=== PATIENT | female | born 1990 | race Caucasian/White ===

== ENCOUNTER 2023-12-28 12:41 | Emergency (ER) | payer OTHER, SELFPAY ==
[2023-12-28 12:48] VITALS: BP 110/78
[2023-12-28 13:11] LABS: % Basophils 0.5 % (0-2); % Eosinophils 0.2 % (0-6); % Immature Granulocytes 0.4 % (0-0.5); % Lymphocytes 13.8 % (20.5-51.1); % Monocytes 3.5 % (1.7-9.3); % Neutrophils 81.6 % (42.2-75.2); Absolute Basophils 0.1 10^3/uL (0-0.2); Absolute Immature Granulocytes 0.1 10^3/uL (0-0.05); Absolute Lymphocytes 1.7 10^3/uL (1.2-3.4); Absolute Monocytes 0.4 10^3/uL (0.1-0.6); Absolute Neutrophils 9.8 10^3/uL (1.4-6.5); Hematocrit 40.7 % (37.0-47.0); Hemoglobin 14.1 g/dL (12.0-16.0); Mean Corp Hgb Conc. 34.6 g/dL (33.0-37.0); Mean Corpuscular Hgb 30.3 pg (27.0-31.0); Mean Corpuscular Volume 87.3 fL (81.0-99.0); Mean Platelet Volume 9.5 fL (7.4-10.4); Nucleated Red Blood Cells % 0 %; Platelet Count 288 10^3/uL (130-400); Red Blood Cell Count 4.66 10^6/uL (4.20-5.40); Red Cell Dist. Width 12.7 % (11.5-14.5)
[2023-12-28 13:27] LABS: HCG, Serum Qualitative Screen Positive
[2023-12-28 13:28] LABS: ALT (SGPT) 11 U/L (0-35); AST (SGOT) 16 U/L (14-36); Albumin 4.8 g/dl (3.5-5.0); Alkaline Phosphatase 53 U/L (38-126); Blood Urea Nitrogen 10 mg/dl (7-17); Calcium 9.7 mg/dl (8.4-10.2); Carbon Dioxide 19 mmol/L (22-30); Chloride 105 mmol/L (98-107); Glucose 99 mg/dl (70-99); Potassium 4.1 mmol/L (3.5-5.1); Sodium 137 mmol/L (135-145); Total Protein 7.2 g/dl (6.3-8.2); eGFR > 60.00
--- NOTE | 2023-12-28 14:53 | ED.GENMED ---
History of Present Illness
General
Chief Complaint: Abdominal Pain
Source: patient
Exam Limitations: none
Time Seen by Provider: 12/28/23 14:43
History of Present Illness
History of Present Illness:
33-year-old female presents complaining of left lower abdominal pain with dark vaginal bleeding and cramping sensation. Last menstrual cycle was November 28, 2023. She was having the symptoms and took a test and was positive at home.
Symptoms started yesterday. She notes the pain is slightly worse than a typical cramp. No fever nausea vomiting. She just moved here from [place]. No other complaints at this time
Phy Exam
Physical Exam
Physical Exam:
General: Well-appearing female no acute respiratory distress
HEENT: Normocephalic atraumatic neck is supple
Heart: Regular rate and rhythm no murmurs
Lungs: Clear no wheeze or rales
Abdomen is soft tender to the left lower abdomen no guarding rebound no bowel sounds nondistended
Extremities: No cyanosis or edema
Skin: Warm no rash
Course
Orders/Labs/Results
Orders:
Orders
12/28/23 12:55
US W Transvaginal Urgent
Reason For Exam: positive test, left lower abd pain
12/28/23 12:56
Test Result ONCE
12/28/23 13:01
Type+Screen Urgent
Beta HCG Quantitative Urgent
Comment: ADD ON
Complete Blood Count/With Diff Urgent
Comprehensive Metabolic Panel Urgent
HCG, Serum Qualitative Screen Urgent
12/28/23 14:52
Add On- LAB Urgent
Tests Added?: serum beta hcg
12/28/23 17:00
Acetaminophen [Tylenol] 650 mg PO NOW STA
Abnormal Lab Results
12/28/23
13:01
WBC 12.0 H 10^3/uL
(4.8-10.8)
Abs Immat Gran (auto) 0.1 H 10^3/uL
(0-0.05)
Absolute Neuts (auto) 9.8 H 10^3/uL
(1.4-6.5)
Neutrophils % 81.6 H %
(42.2-75.2)
Lymphocytes % 13.8 L %
(20.5-51.1)
Carbon Dioxide 19 L mmol/L
(22-30)
12/28/23 13:01
12/28/23 13:01
Vital Signs
Initial and Last Documented VS:
Initial Vital Signs
Temp Pulse Resp BP Pulse Ox
97.9 F 79 18 110/78 99
12/28/23 12:48 12/28/23 12:48 12/28/23 12:48 12/28/23 12:48 12/28/23 12:48
Last Documented Vital Signs
Temp Pulse Resp BP Pulse Ox
97.9 F 81 16 111/78 99
12/28/23 12:48 12/28/23 14:58 12/28/23 14:58 12/28/23 14:58 12/28/23 14:58
MDM/Problems Addressed
Differential Diagnosis Includes:
Vaginal bleeding and left lower abdominal pain in the setting of positive test. Qualitative hCG here is positive as well. Will check beta-hCG. Blood bank ordered today revealed to be positive blood type. No indication for RhoGAM.
Ultrasound pending of pelvis to evaluate for intrauterine versus ectopic.
*Critical Care Note
Total Time (30-74mins, 75-104mins- exclusive of procedures): Not Applicable
Update Note
Update Note:
Ultrasound negative for IUP. There is a small area of concern next to the left ovary that could represent ectopic given hCG is over 1999. hCG is 2033. Explained these results to the patient as well as gynecology on-call. Ectopic
on the differential. Patient is stable with stable vital signs and resting comfortably. Gynecology will see her in their office tomorrow morning at 11 AM after she repeats beta-hCG in the morning. She was given strict and instructions
to return for increased bleeding or pain. Patient voiced understanding
ED Attending Note
-
Portions of this chart may have been created with voice recognition software.� Occasional wrong word or��sound alike� substitutions may have occurred due to the inherent limitations of voice recognition software.
Discharge Plan
Departure
Patient Disposition: Home (Routine Discharge)
Date of Disposition: 12/28/23
Time of Disposition: 17:06
Patient with high blood pressure during this ER visit?: No
Discharge Problem:
Possible ectopic
Instructions: Ectopic ED
Referrals:
Radha Ortiz MD [Active] -
NONE,* [Family Provider] -
Activity Restrictions/Additional Instructions:
Please recheck your hormone level tomorrow morning. Please go to Dr. Ortiz's office at 11 AM for an appointment tomorrow. The address is [address] [place] [address]. Please return here for increasing pain or bleeding. Use
Tylenol for pain otherwise.
Interventions
Interventions:
*Risk Screen - Suicide Last Done: 12/28/23 12:48
*General Assessment Last Done: 12/28/23 12:48
*Neglect/Abuse Screening Last Done: 12/28/23 12:48
ED- Fall Risk Assessment Last Done: 12/28/23 13:26
AR-Iecjdl-Nakxuykhsf Assessment Last Done: 12/28/23 13:26
Discharge Date and Time
Print Language: BOTSWANAN
[2023-12-28 14:58] VITALS: BP 111/78
[2023-12-28] MEDS: TYLENOL 650 MG PO (17:13)
== END 2023-12-28 17:18 | disposition home or self-care (01) ==
LOC: EMR 12:41
PROVIDERS: EMERGENCY PHYSICIAN Emergency Medicine
DX: O99.891 Other specified diseases and conditions complicating pregnancy (principal); R10.32 Left lower quadrant pain; Z3A.00 Weeks of gestation of pregnancy not specified
CPT/HCPCS: 99284; 76801; 76817; 80053; 84702; 84703; 85025; 86850; 86900; 86901

== ENCOUNTER → 2023-12-29 11:20 | Outpatient (REF) | payer OTHER, SELFPAY | LOC: REG 11:20 | PROVIDERS: ATTENDING PHYSICIAN Physician Assistant; REFERRING PHYSICIAN Obstetrics & Gynecology Gynecology | DX: Z01.812 Encounter for preprocedural laboratory examination (principal) | CPT/HCPCS: 36415; 84702 ==

== ENCOUNTER → 2023-12-30 09:50 | Outpatient (REF) | payer OTHER, SELFPAY | LOC: REG 09:50 | PROVIDERS: ATTENDING PHYSICIAN Obstetrics & Gynecology Gynecology | DX: O20.0 Threatened abortion (principal) | CPT/HCPCS: 36415; 84702 ==

== ENCOUNTER 2023-12-30 13:20 | Emergency (ER) | payer OTHER, SELFPAY ==
[2023-12-30 13:27] VITALS: BP 103/59
[2023-12-30 13:34] VITALS: BMI 20.4
--- NOTE | 2023-12-30 15:23 | ED.GENMED ---
History of Present Illness
<Chelsea Baumann PA-C - Last Filed: 12/30/23 20:17>
General
Chief Complaint: Problems
Source: patient
Exam Limitations: none
Time Seen by Provider: 12/30/23 15:09
Nursing documentation reviewed up to this point in time: agreed with
History of Present Illness
History of Present Illness:
Patient is a 33-year-old female G4, P3 presenting from CORONER FORENSIC TECHNICIAN's office for concerns of possible ectopic . Patient states that she initially noticed some left lower quadrant abdominal pain about a week ago at which time she had some mild
vaginal bleeding. She at that point thought it was due to her menstrual cycle. She ended up to test last Monday which was found to be positive. She was seen in our emergency department 2 days ago with similar concerns and discharged with
instructions to continue to trend hCG levels. Patient was contacted by her CORONER FORENSIC TECHNICIAN today to let her know that her hCG level did not rise as expected and she should go to the emergency department for repeat ultrasound. Based on patient's LMP�patient
is likely around 4 weeks gestation.
Patient at this time describes some left lower quadrant abdominal pain intermittently and mild lightheadedness. Patient denies any fever, chills, nausea/vomiting, vaginal bleeding at this time.
Patient has no history of ectopic pregnancies in the past.
Review of Systems
<Chelsea Baumann PA-C - Last Filed: 12/30/23 20:17>
Review of Systems
Allergies reviewed?: Yes
All Other Systems: ROS reviewed and negative except as documented in HPI and ROS
Phy Exam
<Chelsea Baumann PA-C - Last Filed: 12/30/23 20:17>
Physical Exam
Physical Exam:
Vitals: Patient's vital signs are stable. Afebrile
General: Patient is very well appearing, no acute distress. Nontoxic-appearing
Skin: Warm and dry, no rashes or lesions
Head: Normocephalic, atraumatic
Eyes: Sclera nonicteric. EOMs intact. No nystagmus.
Throat: Protecting airway. Moist mucous membranes
Neck: Normal ROM, no cervical spine tenderness, no meningismus
Cardiac: Regular rate and rhythm, no murmurs.
Pulm: Normal respiratory effort, no wheezes, rales, rhonchi heard on exam.
Abdomen: Abdomen soft. Mild abdominal tenderness in left lower quadrant without rebound tenderness or guarding. No CVA tenderness.
Extremities: No evidence of cyanosis or edema
Neuro: AAOx3. CN II-XII intact. No focal neurologic deficits.
Psychiatric: Normal affect.
Course
<Chelsea Baumann PA-C - Last Filed: 12/30/23 20:17>
Orders/Labs/Results
Orders:
Orders
12/30/23 13:33
US Pelvis W Transvag Combined Urgent
Comment:
Reason For Exam: LLQ pain/poss ectopic
12/30/23 16:30
Methotrexate Sodium/Pf [Methotrexate] 39 mg Intramuscular Injection 0 ml IM 1630,1631
Vital Signs
Initial and Last Documented VS:
Initial Vital Signs
Temp Pulse Resp BP Pulse Ox
97.8 F 88 18 103/59 100
12/30/23 13:27 12/30/23 13:27 12/30/23 13:27 12/30/23 13:27 12/30/23 13:27
Last Documented Vital Signs
Temp Pulse Resp BP Pulse Ox
97.8 F 88 18 103/59 100
12/30/23 13:27 12/30/23 13:27 12/30/23 13:27 12/30/23 13:27 12/30/23 13:27
Information
Weeks gestation: Weeks: (4)
Location: N/A
<Jayce Alexandra MD - Last Filed: 12/30/23 15:49>
Orders/Labs/Results
Orders:
Orders
12/30/23 13:33
US Pelvis W Transvag Combined Urgent
Comment:
Reason For Exam: LLQ pain/poss ectopic
12/30/23 16:30
Methotrexate Sodium/Pf [Methotrexate] 39 mg Intramuscular Injection 0 ml IM 1630,1631
Vital Signs
Initial and Last Documented VS:
Initial Vital Signs
Temp Pulse Resp BP Pulse Ox
97.8 F 88 18 103/59 100
12/30/23 13:27 12/30/23 13:27 12/30/23 13:27 12/30/23 13:27 12/30/23 13:27
Last Documented Vital Signs
Temp Pulse Resp BP Pulse Ox
97.8 F 88 18 103/59 100
12/30/23 13:27 12/30/23 13:27 12/30/23 13:27 12/30/23 13:27 12/30/23 13:27
<Chelsea Baumann PA-C - Last Filed: 12/30/23 20:17>
MDM/Problems Addressed
Differential Diagnosis Includes:
Not limited to: Ectopic , normal , spontaneous
MDM/Problems Addressed:
33-year-old female presenting with concerns for ectopic given insufficient rise in hCG levels over the past few days and lower left quadrant abdominal pain. Patient did have ultrasound formed a few days ago which showed a questionable
mass in her left ovary. Patient did have lab work which resulted today from outpatient CORONER FORENSIC TECHNICIAN which showed an hCG level of 2900 which increased from 2034 2 days ago. Patient sent by CORONER FORENSIC TECHNICIAN for repeat ultrasound to rule out ectopic. Ultrasound
performed today shows no evidence of intrauterine . Given hCG level would expect to see intrauterine at this time. High suspicion for ectopic . Patient is otherwise stable. Patient does have a B+ blood type�no
indication for RhoGAM at this time. Did discuss with CORONER FORENSIC TECHNICIAN, Dr. Ortiz. Will treat patient with IM methotrexate. Patient has had multiple discussions with CORONER FORENSIC TECHNICIAN regarding methotrexate and associated risks. Patient will follow-up with CORONER FORENSIC TECHNICIAN
early next week. Return precautions discussed w/ patient. Patient comfortable with this plan. All questions answered.
Chronic conditions affecting care:
N/A
Acute Exacerbation and/or Progression of Chronic Illness:
N/A
<Chelsea Baumann PA-C - Last Filed: 12/30/23 20:17>
*Radiology
Radiology exam reviewed: radiology read reviewed
*Pulse Oximetry
Patient hypoxic: no
*EKG
Interpreted by ED Provider?: NA
*Supervisor Tree Trimming Interpretation
Rate: Supervisor Tree Trimming- N/A
*Critical Care Note
Total Time (30-74mins, 75-104mins- exclusive of procedures): Not Applicable
Data Reviewed
Review of Other/Old Records Reveals: Labs (HCG values) and Radiology Studies (Prior US report from 12/27/22)
<Chelsea Baumann PA-C - Last Filed: 12/30/23 20:17>
Patient Management
Discussion with other providers: Seo Manager (OBGYN - Dr. Ortiz)
ED Attending Note
<Chelsea Baumann PA-C - Last Filed: 12/30/23 20:17>
-
Portions of this chart may have been created with voice recognition software.� Occasional wrong word or��sound alike� substitutions may have occurred due to the inherent limitations of voice recognition software.
<Jayce Alexandra MD - Last Filed: 12/30/23 15:49>
ED Attending Note
Patient seen and examined by attending physician: Yes
I performed the substantive portion of visit, reviewed & personally made and approve the management plan that is documented in note by myself or MACIE.: Yes
ED Attending Note:
Patient sent in by SENIOR BENEFITS MANAGER for methotrexate therapy. Patient is about 3 to 4 weeks by dates. G4, P3. Ultrasound 2 days ago showed a questionable mass near the left ovary. Quantitative hCG has not doubled. Ultrasound today did not show an IUP with a
quant of 2900. Patient again has had some intermittent mild left lower quadrant pain. She is in no distress at this time.
Alert oriented nontoxic. No respiratory distress. Abdomen is soft with very minimal left lower quadrant tenderness. No rebound or guarding no mass or hernia. Nontoxic.
Patient has been followed by SENIOR BENEFITS MANAGER and has had full conversations with SENIOR BENEFITS MANAGER concerning the risk of this treatment. This is all being coordinated through SENIOR BENEFITS MANAGER. Follow-up will be with Dr. Ortiz
Discharge Plan
Departure
Patient Disposition: Home (Routine Discharge)
Date of Disposition: 12/30/23
Time of Disposition: 15:51
Patient with high blood pressure during this ER visit?: No
Condition: Good
Covid-19: Not Applicable
Discharge Problem:
Ectopic
Instructions: Ectopic ED, Ectopic - Discharge instructions
Referrals:
Radha Ortiz MD [Active] - Next open appointment
UNKNOWN - PT DOES,NOT KNOW [Family Provider] -
Activity Restrictions/Additional Instructions:
RETURN TO THE EMERGENCY DEPARTMENT WITH ANY FEVERS/CHILLS, HEAVY BLEEDING, SEVERE ABDOMINAL PAIN, INTRACTABLE NAUSEA/VOMITING, DIZZINESS/LIGHTHEADEDNESS, OR ANY OTHER CONCERNS
-You should take it easy over the next few days. Is important to stay well-hydrated.
-As recommended by your CORONER FORENSIC TECHNICIAN�you will need repeat blood draws this coming Monday and Monday. Your CORONER FORENSIC TECHNICIAN has ordered the lab slips appropriately. Please call your CORONER FORENSIC TECHNICIAN on Monday to check in and see how you are feeling.
-Do not hesitate to return to the emergency department with any concerns.
Interventions
Interventions:
*Risk Screen - Suicide Last Done: 12/30/23 16:11
*General Assessment Last Done: 12/30/23 16:11
*Neglect/Abuse Screening Last Done: 12/30/23 16:11
ED- Fall Risk Assessment Last Done: 12/30/23 17:00
*ED COVID-19 Vaccine History Last Done: 12/30/23 16:11
*Nursing Disposition Last Done: 12/30/23 17:00
ED-Female Genitourinary Assessment Last Done: 12/30/23 16:11
Discharge Date and Time
Discharge Date/Time: 12/30/23 17:00
Print Language: YI
[2023-12-30] MEDS: METHOTREXATE 1.56000000000000005 MG IM ×2 (16:47→16:50)
== END 2023-12-30 17:00 | disposition home or self-care (01) ==
LOC: EMR 13:20
PROVIDERS: EMERGENCY PHYSICIAN Emergency Medicine
DX: O00.90 Unspecified ectopic pregnancy without intrauterine pregnancy (principal); Z3A.01 Less than 8 weeks gestation of pregnancy; R10.32 Left lower quadrant pain; R42 Dizziness and giddiness; F31.9 Bipolar disorder, unspecified
CPT/HCPCS: 99284; 96372; 76830; 76856; J9260

== ENCOUNTER → 2024-01-02 17:17 | Outpatient (REF) | payer OTHER, SELFPAY | LOC: REG 17:17 | PROVIDERS: ATTENDING PHYSICIAN Obstetrics & Gynecology Gynecology | DX: O20.0 Threatened abortion (principal) | CPT/HCPCS: 36415; 84702 ==

== ENCOUNTER → 2024-01-05 13:32 | Outpatient (REF) | payer OTHER, SELFPAY | LOC: REG 13:32 | PROVIDERS: ATTENDING PHYSICIAN Obstetrics & Gynecology Gynecology | DX: O20.0 Threatened abortion (principal) | CPT/HCPCS: 36415; 84702 ==

== ENCOUNTER 2024-01-05 15:32 | Emergency (ER) | payer OTHER, SELFPAY ==
[2024-01-05 15:37] VITALS: BP 120/93
--- NOTE | 2024-01-05 15:57 | ED.GENMED ---
History of Present Illness
<Chelsea Baumann PA-C - Last Filed: 01/05/24 17:29>
General
Chief Complaint: Abnormal Lab Value
Source: patient
Exam Limitations: none
Time Seen by Provider: 01/05/24 15:49
Nursing documentation reviewed up to this point in time: agreed with
History of Present Illness
History of Present Illness:
Patient is a 33-year-old female presenting to the emergency department by OBGYN for repeat methotrexate injection due to inadequate decline in HCG levels in setting of ectopic . Patient was treated with an initial dose of methotrexate
IM 6 days ago on 12/30/23. Patient had repeat hcg labs drawn on 01/01 and 01/04 and was seen by her TUBE TURNER today in office to states that the levels were declining at an appropriate rate and she would need to come to the emergency department for repeat
methotrexate injection.
Patient states that she tolerated last injection well. She says she had very minimal abdominal cramping following the injection but declines any vaginal bleeding
Patient has no other complaints today.
Review of Systems
<Chelsea Baumann PA-C - Last Filed: 01/05/24 17:29>
Review of Systems
Allergies reviewed?: Yes
All Other Systems: ROS reviewed and negative except as documented in HPI and ROS
Phy Exam
<Chelsea Baumann PA-C - Last Filed: 01/05/24 17:29>
Physical Exam
Physical Exam:
Vitals: Patient's vital signs are stable
General: Patient is very well appearing, no acute distress. Nontoxic-appearing
Skin: Warm and dry, no rashes or lesions
Head: Normocephalic, atraumatic
Eyes: Sclera nonicteric. EOMs intact. No nystagmus. Moist mucous membranes
Throat: Protecting airway
Neck: Normal ROM, no cervical spine tenderness, no meningismus
Cardiac: Regular rate and rhythm, no murmurs.
Pulm: Normal respiratory effort, no wheezes, rales, rhonchi heard on exam.
Abdomen: Abdomen soft. No abdominal tenderness.
Extremities: No evidence of cyanosis or edema
Neuro: AAOx3. CN II-XII intact. No focal neurologic deficits.
Psychiatric: Normal affect.
Course
<Chelsea Baumann PA-C - Last Filed: 01/05/24 17:29>
Orders/Labs/Results
Orders:
Orders
01/05/24 16:25
Methotrexate Sodium/Pf [Methotrexate] 77.5 mg Syringe [Syringe Non-Pump] 0 ml IM NOW
Vital Signs
Initial and Last Documented VS:
Initial Vital Signs
Temp Pulse Resp BP Pulse Ox
98.3 F 85 20 120/93 99
01/05/24 15:37 01/05/24 15:37 01/05/24 15:37 01/05/24 15:37 01/05/24 15:37
Last Documented Vital Signs
Temp Pulse Resp BP Pulse Ox
98.3 F 85 20 120/93 99
01/05/24 15:37 01/05/24 15:37 01/05/24 15:37 01/05/24 15:37 01/05/24 15:37
<Stanley Mendiola DO - Last Filed: 01/05/24 16:49>
Orders/Labs/Results
Orders:
Orders
01/05/24 16:25
Methotrexate Sodium/Pf [Methotrexate] 77.5 mg Syringe [Syringe Non-Pump] 0 ml IM NOW
Vital Signs
Initial and Last Documented VS:
Initial Vital Signs
Temp Pulse Resp BP Pulse Ox
98.3 F 85 20 120/93 99
01/05/24 15:37 01/05/24 15:37 01/05/24 15:37 01/05/24 15:37 01/05/24 15:37
Last Documented Vital Signs
Temp Pulse Resp BP Pulse Ox
98.3 F 85 20 120/93 99
01/05/24 15:37 01/05/24 15:37 01/05/24 15:37 01/05/24 15:37 01/05/24 15:37
<Chelsea Baumann PA-C - Last Filed: 01/05/24 17:29>
MDM/Problems Addressed
Differential Diagnosis Includes:
Ectopic
MDM/Problems Addressed:
33-year-old female presenting for repeat methotrexate injection following an adequate decline in hCG levels with suspected ectopic . Patient received first dose of IM methotrexate at 77.5 mg 6 days ago in the emergency department.
Tolerated injection well. Had repeat labs drawn on 01/01 and 01/04. Reviewed patient's lab results. hCG on 01/01 was noted to be 3304.1 and hCG on 01/04 was noted to be 3288.2. Spoke to Dr. Ortiz, patient's TUBE TURNER who states that she should be
seeing a declining hCG at 15% and recommends repeat IM methotrexate at same dose as last week, 77.5 MG.
Patient received repeat methotrexate IM at 77.5 mg as dosed by TUBE TURNER. She tolerated injection well. Patient will follow-up with TUBE TURNER next week�she will be sent for repeat labs 01/08 and 01/11. patient is blood type B+�no indication for RhoGAM.
Patient stable for discharge with close TUBE TURNER follow-up and return precautions.
Chronic conditions affecting care:
Ectopic
Acute Exacerbation and/or Progression of Chronic Illness:
N/A
<Chelsea Baumann PA-C - Last Filed: 01/05/24 17:29>
*Pulse Oximetry
Patient hypoxic: no
*EKG
Interpreted by ED Provider?: NA
*Lock And Dam Operator Interpretation
Rate: Lock And Dam Operator- N/A
*Critical Care Note
Total Time (30-74mins, 75-104mins- exclusive of procedures): Not Applicable
ED Attending Note
<Chelsea Baumann PA-C - Last Filed: 01/05/24 17:29>
-
Portions of this chart may have been created with voice recognition software.� Occasional wrong word or��sound alike� substitutions may have occurred due to the inherent limitations of voice recognition software.
<Stanley Mendiola DO - Last Filed: 01/05/24 16:49>
ED Attending Note
Patient seen and examined by attending physician: Yes
I performed the substantive portion of visit, reviewed & personally made and approve the management plan that is documented in note by myself or MACIE.: Yes
ED Attending Note:
Stable, no symptoms, methotrexate recommended by gynecology. Okay for discharge. Return warnings were reviewed with the patient.
Discharge Plan
Departure
Patient Disposition: Home (Routine Discharge)
Date of Disposition: 01/05/24
Time of Disposition: 17:15
Patient with high blood pressure during this ER visit?: No
Discharge Problem:
Ectopic
Instructions: Ectopic
Referrals:
Radha Ortiz MD [Active] - Next open appointment
NONE,* [Family Provider] -
Activity Restrictions/Additional Instructions:
RETURN TO THE EMERGENCY DEPARTMENT WITH ANY FEVERS/CHILLS, HEAVY BLEEDING, SEVERE ABDOMINAL PAIN, INTRACTABLE NAUSEA/VOMITING, DIZZINESS/LIGHTHEADEDNESS, OR ANY OTHER CONCERNS
-You should take it easy over the next few days. Is important to stay well-hydrated.
-As recommended by your TUBE TURNER�you will need repeat blood draws this coming Monday and Monday. Please call your TUBE TURNER on Monday to check in and see how you are feeling. I have provided you with 2 lab slips. You should call Dr. Ortiz on
Monday to ensure that labs are ordered correctly and that she will receive the results. If not�she may need to pharmacy picking technician lab slips at Dr. Ortiz's office.
-Do not hesitate to return to the emergency department with any concerns.
Interventions
Interventions:
*Risk Screen - Suicide Last Done: 01/05/24 15:40
*General Assessment Last Done: 01/05/24 15:37
*Neglect/Abuse Screening Last Done: 01/05/24 15:40
ED- Fall Risk Assessment Last Done: 01/05/24 17:27
*ED COVID-19 Vaccine History Last Done: 01/05/24 17:27
*Nursing Disposition Last Done: 01/05/24 17:27
Discharge Date and Time
Discharge Date/Time: 01/05/24 17:28
Print Language: [id number]
[2024-01-05 16:17] VITALS: BMI 18.7
[2024-01-05] MEDS: METHOTREXATE 3.10000000000000009 MG IM (17:19)
== END 2024-01-05 17:28 | disposition home or self-care (01) ==
LOC: EMR 15:32
PROVIDERS: EMERGENCY PHYSICIAN Emergency Medicine
DX: O00.90 Unspecified ectopic pregnancy without intrauterine pregnancy (principal); Z3A.00 Weeks of gestation of pregnancy not specified
CPT/HCPCS: 99282; J9260

== ENCOUNTER → 2024-01-09 14:10 | Outpatient (REF) | payer OTHER, SELFPAY | LOC: REG 14:10 | PROVIDERS: ATTENDING PHYSICIAN Obstetrics & Gynecology Gynecology | DX: O00.90 Unspecified ectopic pregnancy without intrauterine pregnancy (principal) | CPT/HCPCS: 36415; 84702 ==

== ENCOUNTER → 2024-01-15 12:50 | Outpatient (REF) | payer OTHER, SELFPAY | LOC: REG 12:50 | PROVIDERS: ATTENDING PHYSICIAN Obstetrics & Gynecology Gynecology | DX: O00.90 Unspecified ectopic pregnancy without intrauterine pregnancy (principal) | CPT/HCPCS: 36415; 84702 ==

== ENCOUNTER → 2024-01-24 12:05 | Outpatient (REF) | payer OTHER, SELFPAY ==
[2024-01-24 14:17] LABS: Beta HCG Quantitative 434.18 mIU/ml
== END ==
LOC: REG 12:05
PROVIDERS: ATTENDING PHYSICIAN Obstetrics & Gynecology Gynecology
DX: O20.0 Threatened abortion (principal)
CPT/HCPCS: 36415; 84702

== ENCOUNTER → 2024-01-31 14:42 | Outpatient (REF) | payer OTHER, SELFPAY ==
[2024-01-31 17:53] LABS: Beta HCG Quantitative 59.57 mIU/ml
== END ==
LOC: REG 14:42
PROVIDERS: ATTENDING PHYSICIAN Obstetrics & Gynecology Gynecology
DX: O20.0 Threatened abortion (principal)
CPT/HCPCS: 36415; 84702